=== PATIENT | female | born 1970 | race American Indian/Alaskan Native ===

== ENCOUNTER 2023-11-18 07:07 | Outpatient (CLI) | payer MEDICAID, SELFPAY ==
--- NOTE | 2023-11-18 07:25 | MR_ITS ---
FINAL REPORT CLINICAL HISTORY: H/O seizure, headaches 13ml prohance FINDINGS: Multiplanar MR imaging of the brain was performed without and with contrast. Images are degraded by patient motion. There is no evidence of intracranial hemorrhage or mass. No abnormal extra-axial fluid collection is seen. The ventricular size is within normal limits. There is no evidence of shift of the midline structures. The posterior fossa and brainstem have an unremarkable appearance. No area of abnormal restricted diffusion is identified. No abnormal contrast enhancement is seen. The 7th and 8th nerve root complexes are intact. IMPRESSION: No acute intracranial abnormality identified. Reviewed, Interpreted and Dictated by Anthony Leonardo MD Transcribed by Marie Cox Authenticated and . [facility]
[2023-11-18 07:54] LABS: Blood Urea Nitrogen 20 mg/dl (7-17); Estimated Glomerular Filt Rate 65 ml/min (>60); GFR (African American) 79 ML/MIN (>60)
[2023-11-18] MEDS: SODIUM CHLORIDE 0.9% 10ML SYR (RAD ONLY) 10 ML IV (09:29)
[2023-11-18] MEDS: GADOTERIDOL INJ 17ML SYRINGE 13 ML IV (09:29)
== END 2023-11-18 23:59 ==
LOC: RAD 07:08
PROVIDERS: PCP Nurse Practitioner Family; Visit Provider Specialist
DX: G44.86 Cervicogenic headache (principal); Z86.69 Personal history of other diseases of the nervous system and sense organs
CPT/HCPCS: 36415; 70553; 82565; 84520; A9576